=== PATIENT | male | born 1950 | race Caucasian/White ===

== ENCOUNTER 2020-09-05 08:30 | Emergency (ER) | payer MEDICARE, BC, SELFPAY ==
--- NOTE | ~2020-09-05 | XR_ITS ---
XR chest 2V DATE: 09/05/2020 08:51 INDICATION: Shortness of breath, cough, low oxygen saturation. History of asthma. TECHNIQUE: PA and lateral views. COMPARISON: None FINDINGS: There is mild bibasilar atelectasis or scarring. No pulmonary consolidation. No pleural eff usion or pulmonary vascular congestion or pneumothorax. Normal heart size. No hilar or mediastinal en largement. Mild dextroscoliosis and degenerative spurring of the thoracolumbar spine. Osteopenia IMPRESSION: Mild bibasilar atelectasis or scarring Reviewed, dictated and finalized at location A.
--- NOTE | ~2020-09-05 | CT_ITS ---
EXAMINATION: CT soft tissue neck w con DATE: 09/05/2020 10:54 INDICATION: Neck pain TECHNIQUE: Computed tomography (CT) of the neck was performed with 75 cc of Omnipaque 350 intravenous contrast. The dose-length product (DLP) was 530.90 mGy-cm. Automated exposure control and iterative reconstruction technique were employed. COMPARISON: None FINDINGS: The thyroid gland is unremarkable. The submandibular and parotid glands are symmetric. Ther e is no lymphadenopathy. There are no masses identified. The vasculature is patent. The airway is unr emarkable. There is moderate cervical spondylosis. The orbits are unremarkable. The superior mediasti num is unremarkable. There is moderate opacification of the left maxillary sinus and ethmoidal air ce lls with minimal opacification of the remaining paranasal sinuses. IMPRESSION: 1. No CT correlate for the patient's symptoms. 2. Sinus disease. Reviewed, dictated and finalized at location B.
[2020-09-05 08:34] VITALS: BP 134/87; PULSE 98; RESP 26; O2SAT 93
--- NOTE | 2020-09-05 08:37 | ECG_ITS ---
Measurements Intervals Dwarf Rate: 89 P: 37 CO: 170 QRS: -38 QRSD: 125 T: 75 QT: 364 QTc: 445 Interpretive Statements SINUS RHYTHM LEFT AXIS DEVIATION INTRAVENTRICULAR CONDUCTION DELAY DELAYED PRECORDIAL R/S TRANSITION LEFT VENTRICULAR HYPERTROPHY AND ST-T CHANGE BASELINE ARTIFACT- II, III, AVR, AVF, V1, V3-V6 BORDERLINE ECG Electronically Signed On 09-05-2020 10:12:48 CDT by Hakeem Qureshi D.O.
[2020-09-05 08:57] LABS: Basophils Absolute Auto 0.1 K/mm3 (0.0-0.1); Basophils Percent Auto 0.5 % (0.2-1.2); Eosinophils Absolute Auto 0.1 K/mm3 (0-0.3); Eosinophils Percent Auto 0.6 % (0-4.4); Hematocrit 45.8 % (42.0-52.0); Immature Granulocyte Absolute 0.04 K/mm3 (0.00-0.031); Immature Granulocyte Percent A 0.2 % (0-0.5); Lymphocytes Absolute Auto 6.03 K/mm3 (0.9-3.2); Lymphocytes Percent Auto 37.5 % (18.3-44.2); Mean Corpuscular HGB Conc 32.8 g/dl (32-36); Mean Corpuscular Hemoglobin 31.6 pg (26-34); Mean Corpuscular Volume 96.6 fl (80-100); Mean Platelet Volume 9.3 fl (7.4-10.4); Monocytes Absolute Auto 1.5 K/mm3 (0.1-0.6); Monocytes Percent Auto 9.5 % (2.6-8.5); Neutrophils Absolute Auto 8.3 K/mm3 (1.3-6.7); Neutrophils Percent Auto 51.7 % (45.5-73.1); Platelet Count Result 257 k/mm3 (150-375); Red Blood Count 4.74 M/mm3 (4.6-6.20); Red Cell Distribution Width 14.2 % (11.5-14.5); White Blood Count 16.1 K/mm3 (4.5-10.0)
[2020-09-05 09:08] LABS: Anion Gap 9 mmol/L (8-16); Blood Urea Nitrogen 7 mg/dL (9-20); Calcium 8.6 mg/dL (8.4-10.2); Carbon Dioxide 27 mmol/L (22-30); Chloride 105 mmol/L (98-107); Estimated CRCL calculation 72 ml/min; Estimated Glomerular Filt Rate > 60; Glucose 125 mg/dL (65-110); Potassium 3.2 mmol/L (3.4-5.0); Sodium 141 mmol/L (137-145)
--- NOTE | 2020-09-05 09:19 | ED.SOB ---
HPI - SOB/Dyspnea General Chief Complaint: Asthma Stated Complaint: Asthma, SOB Time Seen by Provider: 09/05/20 09:10 History of Present Illness HPI Narrative: 70 yo male w/ h/o asthma and recurrent sinusitis presents to the ED for SOB. He reports that he has had sinus pressure and drainge recently. This has lead to the development of sore throat and feeling like his throat is swelling. He has felt SOB since last night. He has tried inhalers and gave himself a shot from his epi pen today without improvement. Related Data Allergies Allergy/AdvReac Type Severity Reaction Status Date / Time amoxicillin [From Augmentin] Allergy Mild Verified 09/05/20 09:23 clavulanic acid Allergy Mild Verified 09/05/20 09:23 [From Augmentin] Review of Systems Review of Systems: All systems reviewed & are unremarkable except as noted in HPI and below Constitutional: Constitutional: Denies fever(s) Eyes: Eyes: Reports no additional eye complaints ENT: Denies dizziness, Reports nasal congestion and Reports sore throat Cardiovascular: Cardiovascular: Denies chest pain Respiratory: Respiratory: Reports dyspnea Gastrointestinal: Gastrointestinal: Reports no additional gastrointestinal complaints Neurologic: Denies dizziness and Denies weakness PMFSH Past Medical History Medical History Asthma Exam Const: General: no acute distress and alert Nutritional Appearance: well nourished Orientation/consciousness: patient oriented x3 HENMT: Ears: external ears normal and TM's normal bilaterally General nose exam: Nasal discharge present mucoid Face and sinus: sinuses nontender Throat: uvula midline and posterior oropharynx abnormal erythema Neck: Neck: normal visual inspection and no lymphadenopathy Resp: Effort & Inspection: tachypneic Auscultation: wheezes scattered wheezes Skin: General skin exam: normal color Neuro: General: patient oriented x3 and moves all extremities Speech: normal speech Course Vital Signs Vital signs: Vital Signs Pulse Rate 98 09/05/20 08:34 Respiratory Rate 26 H 09/05/20 08:34 Blood Pressure 134/87 09/05/20 08:34 Pulse Oximetry 93 09/05/20 08:34 Pulse Rate 82 09/05/20 13:26 Respiratory Rate 18 09/05/20 13:26 Blood Pressure 122/78 09/05/20 13:26 Pulse Oximetry 97 09/05/20 13:26 MDM - SOB/Dyspnea Differential Diagnosis Differential diagnosis: Likely asthma with exacerbation and other Medical Records Attestation: I reviewed the patient's medical records. Lab Data Attestation: I reviewed the patient's lab results. Result diagrams: 09/05/20 08:40 09/05/20 08:40 Labs: Lab Results 09/05/20 09/05/20 Range/Units 08:40 08:40 WBC 16.1 H (4.5-10.0) K/mm3 RBC 4.74 (4.6-6.20) M/mm3 Hgb 15.0 (14.0-18.0) g/dL Hct 45.8 (42.0-52.0) % MCV 96.6 (80-100) fl MCH 31.6 (26-34) pg MCHC 32.8 (32-36) g/dl RDW 14.2 (11.5-14.5) % Plt Count 257 (150-375) k/mm3 MPV 9.3 (7.4-10.4) fl Immature Gran % (Auto) 0.2 (0-0.5) % Neut % (Auto) 51.7 (45.5-73.1) % Lymph % (Auto) 37.5 (18.3-44.2) % [place] % (Auto) 9.5 H (2.6-8.5) % Eos % (Auto) 0.6 (0-4.4) % Baso % (Auto) 0.5 (0.2-1.2) % Lymph # (Auto) 6.03 H (0.9-3.2) K/mm3 [place] # (Auto) 1.5 H (0.1-0.6) K/mm3 Eos # (Auto) 0.1 (0-0.3) K/mm3 Baso # (Auto) 0.1 (0.0-0.1) K/mm3 Abs Immat Gran (auto) 0.04 H (0.00-0.031) K/mm3 Absolute Neuts (auto) 8.3 H (1.3-6.7) K/mm3 Absolute Nucleated RBC 0.0 (0.0-0.012) K/mm3 Nucleated RBC % 0.0 (0.0-0.2) % Sodium 141 (137-145) mmol/L Potassium 3.2 L (3.4-5.0) mmol/L Chloride 105 (98-107) mmol/L Carbon Dioxide 27 (22-30) mmol/L Anion Gap 9 (8-16) mmol/L BUN 7 L (9-20) mg/dL Creatinine 0.90 (0.7-1.3) mg/dL Estim Creat Clear Calc 72 ml/min Estimated GFR > 60 (59 - ) Glucose 125 H (65-110) mg/
[2020-09-05] MEDS: DEXAMETHASONE SOD PHOS INJ 4 MG/ML VIAL 10 MG IV PUSH (09:22)
[2020-09-05 09:27] VITALS: PULSE 87; RESP 21
[2020-09-05] MEDS: racEPINEPHrine 2.25% NEBU SOLN 0.5 ML VIAL.NEB INHALATION (09:27)
[2020-09-05] MEDS: BENZONATATE 100 MG CAPSULE 200 MG PO (09:42)
[2020-09-05 10:43] VITALS: BP 121/75; PULSE 96; RESP 18; O2SAT 96
--- NOTE | 2020-09-05 11:04 | PC.NURSE ---
assumed care of patient
[2020-09-05 11:14] VITALS: BP 120/76; PULSE 86; RESP 18; O2SAT 92
[2020-09-05 13:26] VITALS: BP 122/78; PULSE 82; RESP 18; O2SAT 97
== END 2020-09-05 13:28 | disposition home or self-care (01) ==
PROVIDERS: Emergency Provider Emergency Medicine; PCP Nurse Practitioner Family
DX: J01.90 Acute sinusitis, unspecified (principal); J02.9 Acute pharyngitis, unspecified; J45.909 Unspecified asthma, uncomplicated
CPT/HCPCS: 36415; 70491; 71046; 80048; 85025; 87081; 87880; 93005; 94640; 96374; 99284; A9270; J1100; Q9967

== ENCOUNTER 2020-09-08 08:53 | Outpatient (CLI) | payer MEDICARE, BC, SELFPAY | END 2020-09-08 08:54 | disposition home or self-care (01) | LOC: ANHAUDIO 08:58 | PROVIDERS: PCP Nurse Practitioner Family; Visit Provider Nurse Practitioner Family | DX: H90.3 Sensorineural hearing loss, bilateral (principal) | CPT/HCPCS: 92557; 92567 ==

== ENCOUNTER 2020-09-22 08:44 | Outpatient (RCR) | payer BC, SELFPAY | END 2020-09-22 23:59 | disposition home or self-care (01) | LOC: ANHAUDIO 08:44 | PROVIDERS: PCP Nurse Practitioner Family; Visit Provider Nurse Practitioner Family | DX: Z46.1 Encounter for fitting and adjustment of hearing aid (principal) | CPT/HCPCS: V5261 ==

== ENCOUNTER 2024-03-10 15:15 | Outpatient (CLI) | payer MEDICARE, BC, SELFPAY ==
--- NOTE | ~2024-03-10 | XR_ITS ---
EXAMINATION: XR chest 2V 03/10/2024 15:46 INDICATION: Wheezing PROCEDURE: 2 view chest COMPARISON: 09/05/2020 FINDINGS: The lungs are clear. The cardiomediastinal silhouette is within normal limits. There are no pleural effusions. There is no pneumothorax suspected. IMPRESSION: 1: NO ACUTE CARDIOPULMONARY DISEASE. Reviewed, dictated and finalized at location A. [employer]
--- NOTE | ~2024-03-10 | XR_ITS ---
HISTORY: low back pain COMPARISON: None. TECHNIQUE: 2 view lumbar spine. FINDINGS: There are 5 non-rib bearing lumbar vertebral bodies. Significant degenerative disease is identified lumbar spine with osteophyte formation (and bridging) ankylosis, endplate changes and vacuum phenomena. Facet arthropathy is also noted. Grade 1 anterolisthesis of L3 onto L4 and L4 onto L5. Trace compression of the superior endplate of L2, age indeterminate. IMPRESSION: Degenerative disease with trace compression of the superior endplate of L2, age indeterminate. The patient is clinically able, MRI would provide additional information Reviewed, dictated and finalized at location A. EACH REP
--- OUTSIDE RECORDS SUMMARY | 2024-03-12 19:46 | XMS_ITS | Continuity of Care Document ---
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 Plan of Treatment Reminders Order Date Submit Date Provider Last Modified By Organization Details Last Modified Time Details Appointments None recorded . Lab None recorded . Referral pain manageme nt referral - Please call patient to schedule an appointm ent. Thank you. 2024 025 [facility], [address], [place], [address], 17:15:23 Procedures None recorded . Surgeries None recorded . Imaging XR, chest, 2 view 2024 025 [facility], [address], [place], [address], 5 17:07:58 XR, lumbosac ral spine, 2 or 3 view 2024 025 [facility], [address], [place], [address], 5 09:21:20 Medication Orders levoflox acin 750 mg tablet 2024 025 [facility] [address] In [facility], [address], [place], [address], 5 15:50:17 albutero l sulfate HFA 90 mcg/actu ation aerosol inhaler 2024 025 [facility] [address] In [facility], [address], [place], [address], 5 15:50:18 Patient TargetsNo targets recorded. Patient InstructionsNo instructions recorded. Reason for Referral Pain Management Referral for Low back pain Please call patient to schedule an appointment. Thank you. Referring Physician: Miroslava Mcintosh, Family Medicine, Encounter Date: 03/10/2024 Results Created Date Observation Date Name Description Value Unit Range Abnormal Flag Note LastModifiedBy Organization Detail LastModifiedTime 03/10/19 25 03/10/2024 XR, chest , 2 view No observ ation record ed. [address], [place], [address], 03/11/2024 14:40:48 03/11/19 25 03/10/2024 XR, lumbo sacra l spine , 2 or 3 view No observ ation record ed. [address], [place], [address], 03/11/2024 14:40:49 Result Notes None recorded. Problems Name Problem SNOMED Code Status Onset Date Resolution Date Notes Provider Name and Address Organization Details Recorded Time Decreased hearing 261300185 Active 2017 Not Available [facility] 4 09:23:48 Nocturia 649203108 Active 2017 Not Available [facility] 4 09:23:48 Herpes labialis 8830379 Active 2021 Not Available [facility] 4 09:23:48 Acquired trigger finger 6628990 Active Not Available [facility] 4 09:23:48 Acute sinusitis 22332250 Completed Jose Palacio NP [address] [facility] [address] [facility] [address], [place], [address] , [facility] [employer] 3 08:12:28 On examinati on - herpes labialis- cold sore Active 2018 Not Available [facility] 4 09:23:48 Insomnia 149107113 Active Not Available [facility] 4 09:23:48 Asthma 688440432 Active Not Available [facility] 4 09:23:48 Localized , primary osteoarth ritis of the hand 301019812 Active Not Available [facility] 4 09:23:48 Gastroeso phageal reflux disease 173917244 Active Not Available [facility] 4 09:23:48 Fluid level behind tympanic membrane Completed Not Available [facility] 3 07:31:06 Family history of Cardiovas cular disease 102074542 Active 2017 Not Available [facility] 4 09:23:48 Pain of left hand 66738667966 9103 Active 2021 Not Available [facility] 4 09:23:48 Sinusitis 95561899 Completed Not Available [facility] 3 07:31:06 Seasonal allergy 280421421 Active 2017 Not Available [facility] 4 09:23:48 Upper respirato ry infection 78895720 Completed Not Available [facility] 3 07:31:07 Hyperlipi demia 19974425 Active 2017 doesn' t want to be on statin - side effect s. Not Available [facility] 4 09:23:49 Allergic rhinitis 72878688 Active 2020 Not Available [facility] 4 09:23:49 Rhinitis 98886623 Active Not Available [facility] 4 09:23:49 Posterior rhinorrhe a 68929489 Active Not Available [facility] 4 09:23:49 Acute sinusitis 33687068 Active 2022 Not Available [facility] 4 09:23:48 Difficult y passing urine 750829826 Active 2022 Not Available [facility] 4 09:23:48 Cramp in lower limb 124837499 Active 2022 Not Available [facility] 4 09:23:49 Acute bacterial sinusitis 35279869 Active [address], [place], [address] , [employer] [facility] [employer] [facility] 4 12:42:45 Allergic asthma 237519383 Active 2023 JESSA Vaughn [address], [address], [place], [address] , [place] [facility] 4 10:32:53 Spasm 38202714 Active 2023 JESSA Vaughn [address], [address], [place], [address] , [employer] [facility] [employer] [facility] [employer] 4 10:34:54 Acute otitis media 0413623 Active 2023 JESSA Vaughn [address], [address], [place], [address] , [employer] [facility] [employer] [facility] [employer] 4 10:45:25 Skin lesion 97008552 Active 2023 JESSA Vaughn [address], [address], [place], [address] , [facility] [facility] [employer] 4 16:18:54 Low back pain 438856256 Active 2024 JESSA Vaughn [address], [address], [place], [address] , [employer] [facility] [employer] [facility] 5 15:40:12 Expirator y wheezing 7370586 Active 2024 JESSA Vaughn [address], [address], [place], [address] , [employer] [facility] [employer] 5 15:42:53 Degenerat ion of lumbar intervert ebral disc 93662968 Active 2024 JESSA Vaughn [address], [address], [place], [address] , [employer] [facility] 5 09:24:23 Problem Notes None recorded. Procedures Surgical History Date Name Laterality Status Provider Name and Address Organization Details Recorded Time 10/15/19 24 Medicare Wellness CPT Code, Initial completed Miroslava Pulidojulio cesar, JESSA [address] [facility] [address], [place], [address], [facility] [employer] 10/15/2023 10:53:44 02/18/19 13 Cataract surg w/iol 1 stage completed Jose Haider RN [facility] [employer] 10/15/2023 10:15:12 Sinus Surgery completed Not Available [facility] 04/18/2022 07:27:20 Tonsillectomy completed Not Available [facility] 04/18/2022 07:27:20 Imaging Results None recorded. Procedure Notes None recorded. Medical Equipment None Reported. Allergies Allergen ID Allergen Name Allergen Category Reaction Reaction Severity Criticality Documentation Date Start Date Code Code System Note Provider Name and Address Organization Details Recorded Time 23076 Product containin g 3-hydroxy -3-methyl glutaryl- coenzyme A reductase inhibitor (product) medicatio n Not available Not available Not available 04/18/2022 31801 009 SNOMED muscl e aches , pain in throa t. Not Available [facility] 3 07:36:00 15515 cat dander environme nt anaphylax is moderate Not available 04/18/2022 52245 UNK breat ben cease s. Passe d out. Not Available [facility] 3 07:36:00 60486 Augmentin medicatio n nausea Not available Not available 04/18/2022 20888 2 RxNorm Not Available [facility] 3 07:36:00 Medications Name Sig Start Date Stop Date Status Note LastModified by Organization Details LastModified Time cyclobenzap rine 10 mg tablet Take 1 tablet 3 times a day by oral route as needed. 11/19 completed Not Available Not Available Not Available prednisone 10 mg tablet TAKE 2 TABLETS BY MOUTH EVERY DAY FOR 5 DAYS 08/19 completed Not Available Not Available Not Available doxycycline hyclate 100 mg capsule TAKE 1 CAPSULE BY MOUTH TWICE A DAY DIRECTED FOR 7 DAYS 03/10 completed Not Available Not Available Not Available ipratropium 0.5 mg-albutero l 3 mg (2.5 mg base)/3 mL nebulizatio n soln Inhale 3 mL 4 times a day by nebulizat ion route. 10/01 completed Not Available Not Available Not Available clindamycin HCl 300 mg capsule TAKE 1 CAPSULE BY MOUTH THREE TIMES A DAY FOR 10 DAYS. 11/19 completed Not Available Not Available Not Available azithromyci n 250 mg tablet TAKE 2 TABLETS BY MOUTH TODAY, THEN TAKE 1 TABLET DAILY FOR 4 DAYS DIRECTED 08/19 completed Not Available Not Available Not Available ibuprofen 800 mg tablet 1 tab po q 6 hours prn pain 07/23 completed Not Available Not Available Not Available ofloxacin 0.3 % eye drops 02/17 completed Not Available Not Available Not Available benzonatate 200 mg capsule Take 1 capsule 3 times a day by oral route as needed for 7 days. active Not Available Not Available No t Available valacyclovi r 1 gram tablet TAKE 1 TABLET BY MOUTH EVERY 12 HOURS NEEDED FOR 2 DAYS WHEN COLD SORE PRESENT active Not Available Not Available No t Available clarithromy abner 500 mg tablet Take 1 tablet every 12 hours by oral route for 30 days. active Not Available Not Available No t Available Celestone Soluspan 6 mg/mL suspension for injection active Not Available Not Available No t Available prednisone 20 mg tablet 07/23 completed Not Available Not Available Not Available Viagra 50 mg tablet Take 1 tablet every day by oral route as directed for 30 days. active Not Available Not Available No t Available prednisone 5 mg tablet TAKE 2 TABLETS BY MOUTH EVERY OTHER DAY AND TAKE 1 TABLET ON THE IN-BETWEE N DAYS 2023 active Not Available Not Available Not Avai lable promethazin e 6.25 mg-codeine 10 mg/5 mL syrup 10/01 completed Not Available Not Available Not Available metronidazo le 500 mg tablet Take 1 tablet every 8 hours by oral route as directed for 5 days. 07/23 completed Not Available Not Available Not Available doxepin 10 mg capsule Take 1 capsule every day by oral route at bedtime for 30 days. active Not Available Not Available No t Available ciprofloxac in 500 mg tablet Take 1 tablet every 12 hours by oral route as directed for 5 days. active Not Available Not Available No t Available sulfamethox azole 800 mg-trimetho prim 160 mg tablet TAKE 1 TABLET BY MOUTH EVERY 12 HOURS FOR 10 DAYS active Not Available Not Available No t Available prednisolon e acetate 1 % eye drops,suspe nsion 02/17 completed Not Available Not Available Not Available tamsulosin 0.4 mg capsule TAKE 1 CAPSULE BY MOUTH EVERY DAY 08/19 completed Not Available Not Available Not Available benzonatate 100 mg capsule TAKE 2 TABLETS BY MOUTH THREE TIMES DAILY NEEDED 08/29 completed Not Available Not Available Not Available simvastatin 20 mg tablet 1 tab po nightly. active Not Available Not Available No t Available neomycin-po lymyxin-dex ameth 3.5 mg/mL-10,00 0 unit/mL-0.1 % eye drops INSTILL ONE DROP INTO LEFT EYE FOUR TIMES DAILY FOR 3 DAYS active Not Available Not Available No t Available ranitidine 150 mg tablet Take 1 tablet every 12 hours by oral route as directed for 15 days. active Not Available Not Available No t Available lansoprazol e 30 mg capsule,del ayed release TAKE 1 CAPSULE BY MOUTH EVERY DAY 08/19 completed Not Available Not Available Not Available budesonide 0.5 mg/2 mL suspension for nebulizatio n active Not Available Not Available Not Available montelukast 10 mg tablet 1 tab po daily. 10/19 completed Not Available Not Available Not Available ceftriaxone 500 mg solution for injection active Not Available Not Available No t Available Cheratussin AC 10 mg-100 mg/5 mL oral liquid Take 10 mL every 8 hours by oral route as needed for 5 days. 07/23 completed Not Available Not Available Not Available epinephrine 0.3 mg/0.3 mL injection, auto-inject or Inject PRN allergic reaction 08/19 completed Not Available Not Available Not Available levofloxaci n 500 mg tablet Take 1 tablet every 24 hours by oral route as directed for 10 days. 10/01 completed Not Available Not Available Not Available levofloxaci n 750 mg tablet Take 1 tablet every day by oral route as directed for 7 days. 2024 active Not Available Not Available Not Avai lable zolpidem 10 mg tablet Take 1 tablet(s) every day by oral route at bedtime for 30 days.. active Not Available Not Available No t Available methylpredn isolone 4 mg tablets in a dose pack TAKE 6 TABLETS ON DAY 1 DIRECTED ON PACKAGE AND DECREASE BY 1 TAB EACH DAY FOR A TOTAL OF 6 DAYS 08/29 completed Not Available Not Available Not Available albuterol sulfate HFA 90 mcg/actuati on aerosol inhaler Inhale 2 puffs every 4 hours by inhalatio n route as needed. 2024 active Not Available Not Available Not Avai lable ondansetron 4 mg disintegrat ing tablet Take 1 tablet every 6-8 hours by oral route as needed for 5 days. active Not Available Not Available No t Available cefdinir 300 mg capsule Take 1 capsule every 12 hours by oral route for 10 days. active Not Available Not Available No t Available fluticasone propionate 50 mcg/actuati on nasal spray,suspe nsion Inhale 2 sprays every day by intranasa l route in the morning for 30 days. active Not Available Not Available No t Available doxycycline hyclate 100 mg tablet TAKE 1 TABLET BY MOUTH TWICE A DAY 12/13 completed Not Available Not Available Not Available diazepam 5 mg tablet 02/17 completed Not Available Not Available Not Available amoxicillin 875 mg-potassiu m clavulanate 125 mg tablet Take 1 tablet every 12 hours by oral route. 08/29 completed Not Available Not Available Not Available metaxalone 800 mg tablet Take 1 tablet 3 times a day by oral route as needed. active Not Available Not Available No t Available ezetimibe 10 mg tablet TAKE 1 TABLET BY MOUTH EVERY DAY 08/19 completed Not Available Not Available Not Available cyclobenzap rine 5 mg tablet TAKE 1 TABLET BY MOUTH THREE TIMES A DAY NEEDED active Not Available Not Available No t Available Restasis 0.05 % eye drops in a dropperette 05/19 completed Not Available Not Available Not Available Xolair 150 mg subcutaneou s solution 05/19 completed Not Available Not Available Not Available ketorolac 0.4 % eye drops 02/17 completed Not Available Not Available Not Available Levitra 10 mg tablet Take 1 tablet as needed by oral route as directed for 30 days. 05/19 completed Not Available Not Available Not Available Gammagard Liquid 10 % injection solution GETS 1X A MONTH 10/01 completed Not Available Not Available Not Available zolpidem ER 12.5 mg tablet,exte nded release,mul tiphase Take 1 tablet every day by oral route as directed for 30 days. 05/19 completed Not Available Not Available Not Available prednisone 08/29 completed Not Available Not Available Not Available azelastine 205.5 mcg (0.15 %) nasal spray 1 spray each nostril bid prn allergies . 10/19 completed Not Available Not Available Not Available Dexilant 60 mg capsule, delayed release TAKE 1 CAPSULE DAILY. MAKE AN APPOINTME NT FOR FURTHER REFILLS active Not Available Not Available No t Available QNASL 80 mcg/actuati on nasal aerosol spray active Not Available Not Available Not Available Flowflex COVID-19 Antigen Home Test kit REFER TO MANUFACTU RER INSTRUCTI ONS INCLUDED IN PACKAGING 06/14 completed Not Available Not Available Not Available Vitals Date Recorded Body height Body mass index (BMI) Body weight Heart rate Body temperature Respiratory rate Oxygen saturation Oxygen saturation in Arterial blood by Pulse oximetry Systolic blood pressure Diastolic blood pressure Provider Name and Address Organization Details Last Updated DateTime 5 177.8 cm 27.6 kg/m2 33589.4 4 g 63 /min 97.2 [degF] 24 /min 99 % 99 % 170 mm[Hg] 110 mm[Hg] Jose Haider RN [place] [facility] [employer] 5 15:30:18 Social History Question Answer Notes LastModified by Organization Details LastModified Time Tobacco Smoking Status Never Smoker Not Available [facility] 04/18/2022 07:27:03 Do You Have An Advance Directive? No [id number].[id number] [id number] Information not available 04/18/2022 What Is Your Level Of Alcohol Consumption? Moderate MIGRATION.0301 [id number] Information not available 04/18/2022 Are You Blind Or Do You Have Difficulty Seeing? No MIGRATION.0301 181407 Information not available 04/18/2022 Is Blood Transfusion Acceptable In An Emergency? Yes Information not available 10/15/2023 What Is Your Level Of Caffeine Consumption? Moderate MIGRATION.0301 [id number] Information not available 04/18/2022 How Much Tobacco Do You Chew? None MIGRATION.0301 [id number] Information not available 04/18/2022 What Is Your Code Status? Full Code Information not available 10/15/2023 In The 14 Days Before Symptom Onset, Have You Had Close Contact With A Laboratory-conf irmed COVID-19 While That Case Was Ill? No MIGRATION.0301 [id number] Information not available 04/18/2022 In The 14 Days Before Symptom Onset, Have You Had Close Contact With A Person Who Is Under Investigation For COVID-19 While That Person Was Ill? No MIGRATION.0301 [id number] Information not available 04/18/2022 Are You Currently Employed? No Information not available 10/15/2023 Are You Deaf Or Do You Have Serious Difficulty Hearing? Yes Hears 3 Different Pitches At A Time. MIGRATION.0301 [id number] Information not available 04/18/2022 What Type Of Diet Are You Following? REGULAR MIGRATION.0301 414546 Information not available 04/18/2022 Which Illicit Or Recreational Drugs Have You Used? Marijuana MIGRATION.0301 244079 Information not available 04/18/2022 Do You Or Have You Ever Used E-cigarettes Or Vape? Never Used Electronic Cigarettes MIGRATION.0301 328046 Information not available 04/18/2022 What Is Your Occupation? Retired MIGRATION.0301 667417 Information not available 04/18/2022 Have There Been Any Changes To Your Family Or Social Situation? No Information not available 06/14/2022 Do You Use Insect Repellent Routinely? Yes MIGRATION.0301 [id number] Information not available 04/18/2022 Where Do You Live? SingleLevelHouse Information not available 06/14/2022 Advance Directive- Providers Has Reviewed Directive And Consents To Follow Them (insert Provider Name With Any Objectives In Notes Field) No Information not available 10/15/2023 Presence Of Domestic Violence No Information not available 10/15/2023 Guns Present In The Home? No Information not available 10/15/2023 Are You Able To Care For Yourself? No Information not available 10/15/2023 Are You Blind Or Do Yo Have Difficulty Seeing? Yes Information not available 10/15/2023 Are You Deaf Or Do You Have Serious Difficulty Hearing? Yes Information not available 10/15/2023 General Stress Level? Low Information not available 10/15/2023 Live Alone Of With Others? Alone Information not available 10/15/2023 Do You Have A Medical Power Of Backend Tester? No MIGRATION.0301 [id number] Information not available 04/18/2022 What Was The Date Of Your Most Recent Tobacco Screening? 11/14/2021 MIGRATION.0301 [id number] Information not available 04/18/2022 What Is Your Relationship Status? MIGRATION.0301 730463 Information not available 04/18/2022 Do You Use Your Seat Belt Or Car Seat Routinely? Yes MIGRATION.0301 178591 Information not available 04/18/2022 Do You Have Smoke And Carbon Monoxide Detectors In Your Home? No Information not available 06/14/2022 Do You Or Have You Ever Used Smokeless Tobacco? Never Used Smokeless Tobacco MIGRATION.0301 181082 Information not available 04/18/2022 Are There Any Smokers In Your House? No Information not available 06/14/2022 Do You Participate In Social [employer]? Yes MIGRATION.030 [id number] Information not available 04/18/2022 Do You Feel Stressed (tense, Restless, Nervous, Or Anxious, Or Unable To Sleep At Night)? [id number] Information not available 10/15/2023 Do You Use Any Illicit Or Recreational Drugs? Yes Information not available 06/14/2022 Do You Use Sunscreen Routinely? Yes MIGRATION.0301 954631 Information not available 04/18/2022 Have You Recently Traveled Abroad? No MIGRATION.0301 148611 Information not available 04/18/2022 Sex: Male Functional Status Question Answer Note LastModified by Organizat ion Details LastModified Time Do you have difficulty walking or climbing stairs? No MIGRATION.91981 19673 Information not available 04/18/2022 Do you have transportation difficulties? No Information not available 06/14/2022 Are you able to walk? YESWOREST Occasionally unsteady MIGRATION.77860 05590 Information not available 04/18/2022 Do you have difficulty doing errands alone? No MIGRATION.39692 91646 Information not available 04/18/2022 Are you able to care for yourself? Yes MIGRATION.46417 68590 Information not available 04/18/2022 Do you have difficulty dressing or bathing? No MIGRATION.07285 94131 Information not available 04/18/2022 What is your exercise level? Heavy MIGRATION.61639 31361 Information not available 04/18/2022 Mental Status Question Answer Note LastModified by Organizat ion Details LastModified Time Do you have difficulty concentrating, remembering or making decisions? No MIGRATION.[id number] 6 Information not available 04/18/2022 Family History Relationship Description Onset Age of this Age Resolved Age Notes LastModified by Organization Details LastModified Time Father No current problems or disability MIGRATION.543 [id number] Not available 04/18/2022 07:27:22 Mother No current problems or disability MIGRATION.365 [id number] Not available 04/18/2022 07:27:22 Medical History Condition Response BLINDNESS N RHEUMATIC FEVER N KIDNEY STONES N BLADDER PROBLEMS N MRSA N OTHER # 1 N POLIO N LUNG DISEASE/DISORDER Y HISTORY OF DRUG ABUSE N RADIATION / CHEMOTHERAPY N COPD N Other # 2 N BLOOD DISEASES N SURGERY N EAR OR HEARING PROBLEMS N MUMPS N SHINGLES N FEMALE PROBLEMS / INFECTIONS N BOWEL PROBLEMS N DEPRESSION (INCLUDING POST ) N STROKE/TIA N THYROID DISEASE N ULCERS N BENIGN PROSTATIC HYPERPLASIA N MEASLES N CERVICALGIA N TB SKIN TEST N HYPOTENSION N MYOCARDIAL INFARCTION N PARAPELGIA N OBESITY N GERD/NAUSEA N ANEURYSM N URINARY/BLADDER/KIDNEY PROBLEMS N CORONARY ARTERY DISEASE (CAD) N MENIERE'S DISEASE N ADDICTION CONCERNS N ENDOMETRIOSIS N USE OF BLOOD THINNERS N SKIN PROBLEMS N EMPHYSEMA N GASTROINTESTINAL DISORDER N MUSCLE,JOINT OR BONE PROBLEMS N GASTROINTESTINAL BLEEDING N BLOOD CLOTS N ASTHMA Y CATARACTS Y ERECTILE DYSFUNCTION N GI PROBLEMS N CHF N Low Testosterone N NEUROPATHY N INFERTILITY N AIDS/HIV N FRACTURES N CHEMOTHERAPY / RADIATION N VISION/EYE PROBLEMS N LIVER DISEASE N MALE HYPOGONADISM N HYPERTENSION N TOURETTE'S N ANXIETY DISORDER Y BLOOD TRANSFUSION N ANEMIA/BLOOD DISORDER N CHRONIC EAR INFECTIONS N BRONCHITIS N TUBERCULOSIS N GLAUCOMA N FOOT PROBLEM N DIVERTICULITIS N SLEEP APNEA N CHICKENPOX N ALLERGIES/HAYFEVER Y INFECTIOUS DISEASE N PROSTATE N HEART ARRHYTHMIA N INSOMNIA N HIGH CHOLESTEROL / HYPERLIPIDEMIA N EYE PROBLEMS N HYPERTHYROIDISM N EATING DISORDER N EDEMA N CHRONIC PAIN SYNDROME N CONSTIPATION N CAROTID BLOCKAGE N BACK / NECK PROBLEMS Y HAVE YOU BEEN HOSPITALIZED OR SEEN IN [facility] IN THE PAST YEAR ? N ATHEROSCLEROSIS N BREAST PROBLEMS N DIALYSIS N ECZEMA N FIBROMYALGIA N OSTEOPOROSIS N ARTHRITIS N NO SIGNIFICANT PAST MEDICAL HISTORY N APPENDICITIS N DIABETES, TYPE N BAD TEETH N HEARTBURN / REFLUX N ADD/ADHD N AUTISM SPECTRUM DISORDER (ASD) N HEPATITIS / LIVER DISEASE N PULMONARY DISEASE N GOUT N SLEEP DISORDER N ALZHEIMER'S DISEASE N PAIN N DEMENTIA N HERPES N SEIZURES/EPILEPSY N HEADACHES/MIGRAINES N VASCULAR DISEASE N PACEMAKER N DIZZINESS N HEART DISEASE/HEART PROBLEMS N KIDNEY DISEASE N SCARLET FEVER N MULTIPLE SCLEROSIS N DEVELOPMENTAL OR BEHAVIORAL DISORDERS N MENTAL DISORDER/ILLNESS N CANCER: SPECIFY N CARDIAC ARRHYTHMIA N PNEUMONIA N ATRIAL FIBRILLATION N Gall Stones N PULMONARY EMBOLISM N AUTOIMMUNE DISEASE N Immunizations Vaccine Type Date Status Note Provider Nam e and Address Organization Details Recorded Time SARS-COV-2 (COVID-19) vaccine, UNSPECIFIED 3 completed Jose Haider RN [facility], [facility] [employer] 08/20/2023 10:11:55 Respiratory syncytial virus (RSV), unspecified 4 completed Jose Palacio NP [address] [place] [address], [id number], [facility] [place] [employer] [facility] [employer] 02/27/2023 08:05:18 Influenza, split virus, quadrivalent, preservative 1 completed Not Available [facility] 04/18/2022 07:35:53 SARS-COV-2 (COVID-19) vaccine, UNSPECIFIED 1 completed Not Available [facility] 04/18/2022 07:35:53 SARS-COV-2 (COVID-19) vaccine, UNSPECIFIED 1 completed Not Available [facility] 04/18/2022 07:35:53 Tdap 8 completed Not Available [facility] 04/18/2022 07:35:53 Influenza, split virus, trivalent, preservative 3 completed Not Available [facility] 04/18/2022 07:35:54 pneumococcal polysaccharide PPV23 1 completed Not Available [facility] 04/18/2022 07:35:54 Td (adult), 2 Lf tetanus toxoid, preservative free, adsorbed 8 completed Not Available [facility] 04/18/2022 07:35:54 Pneumococcal conjugate PCV 13 8 completed Not Available [facility] 04/18/2022 07:35:54 Influenza, split virus, quadrivalent, preservative 6 completed Not Available [facility] 04/18/2022 07:35:54 Influenza, split virus, trivalent, PF 4 completed Not Available [facility] 04/18/2022 07:35:54 Past Encounters Encounter ID Performer Location Encounter Start Date Encounter Closed Date Diagnosis/Indication Diagnosis SNOMED-CT Code Diagnosis ICD10 Code Diagnosis Note [id number] JESSA Vaughn [facility] [address] [address] 03/10/2024 15:16:57 03/10/2024 15:52:59 Low back pain 431579858 M54.50 Possible kidney stone?Pt request pain management referral Expiratory wheezing [id number] 007 R06.2 Has been wheezing for a few months.Bell s take prednisone every other day.Does not see pulm for asthmaRefu ses ICS Asthma [id number] J45.90 9 Will increase daily prednisone dose while symptoms are severe Acute bact erial sinusitis [id number] J01.90 Large spectrum abx resistant, frequent abx use. Has had multiple sinus surgeries with no relief Health Concerns Section Related Observation LastModified by Organization Detai ls LastModified Time None Recorded Concern Status LastModified by Organization Details LastModified Time None Recorded Payers Encounter Date Sequence Insurance Name Policy Number Policy Delatorre Covered Member ID Delatorre Member ID Guarantor Name 03/10/2024 1 [place] Swapnil Manas Nish [id number] Swapnil Mock 03/10/2024 2 [place] ([place]) [id number] Swapnil Mock [id number] Swapnil Mock Notes Date Note Type Note Provider Name and Address Organization Details Recorded Time 03/10/2024 text/html Swapnil Mock is a 74 year old male patient here today for a sick visit Pain in BUD ears, sinuses, sore throat, head congestion. Kept him awake last night. Wheezing, worse at night for a few months. Sometimes will wake himself up at night from the sounds of his wheeze.He does take prednisone every other day per ENT Has had issues with left sided flank pain that radiates to his abdomen. Would like to see pain management JESSA Vaughn [address] [facility] [address], [place], [address], [facility] 03/10/2024 15:58:25
--- OUTSIDE RECORDS SUMMARY | 2024-03-12 19:46 | XMS_ITS | CONTINUITY OF CARE DOCUMENT ---
Author Name sam vargas Address Unknown Organization [facility] Address [address] [place] [address] Phone [phone] Care Team Providers Care Chief Deputy Coroner Name Role Phone Milton Ponce MD Unavailable Mickie SALGADOP-BC, Karlene Malagon Unavailable Mickie [employer]AL [employer]ODUCTION WORKER-BC, Karlene Malagon Unavailable [phone] PROBLEMS Condition Status Date Provider Notes Personal history of COVID-19 active Milton palomares MD Chest pain active Miltno Ponce MD Palpitations active Milton Ponce MD Shortness of breath on exertion active Zack Ponce MD Cardiology examination completed 5 - Milton Ponce MD ENCOUNTERS Date Type Provider Location Encounter Diag nosis - In-person encounter Office Visit Milton Ponce MD [facility] Cardiology examination - In-person encounter Office Visit Milton Ponce MD [facility] - In-person encounter Office Visit Milton Ponce MD [facility] Personal history of COVID-19 - In-person encounter Office Visit Milton Ponce MD [place] [facility] Shortness of breath on exertionPalpitationsChest pain VITAL SIGNS Date Observation Value Provider Body Mass Index (Ratio) 27.69 kg/m2 Zack Ponce MD blood pressure, diastolic 85 mm[Hg] Rosa M [employer] blood pressure, systolic 124 mm[Hg] Denise kLog blood pressure, cuff size regular Ja blood pressure, diastolic 85 mm[Hg] Ja [facility] blood pressure, systolic 124 mm[Hg] [facility] pulse rate 100 /min Richie oxygen saturation, oximetry 98 % [facility] respiratory rate E&M 12 /min [facility] weight E&M 193 [lb_av] [facility] height E&M 70 [in_i] [facility] Body Mass Index (Ratio) 28.12 kg/m2 Zack Ponce MD blood pressure, diastolic 79 mm[Hg] An shanthi Meade blood pressure, systolic 115 mm[Hg] Any kandice Meade oxygen saturation, oximetry 99 % Maria Elena Meade pulse rate 65 /min Maria Elena Meade weight E&M 196 [lb_av] Maria Elena Meade blood pressure, cuff size large An shanthi Meade height E&M 70 [in_i] Maria Elena Meade Body Mass Index (Ratio) 27.98 kg/m2 Zack Ponce MD blood pressure, cuff size large Ke rri Marce blood pressure, diastolic 72 mm[Hg] Ke rri Marce blood pressure, systolic 106 mm[Hg] Gregorio Zheng oxygen saturation, oximetry 95 % Shahida Zheng respiratory rate E&M 16 /min Shahida pedro pulse rate 70 /min Shahida Adorno [facility] weight E&M 195 [lb_av] Shahida Adorno [facility] height E&M 70 [in_i] Shahida Adorno [facility] weight E&M 194 [lb_av] aHrinder wilson Body Mass Index (Ratio) 27.83 kg/m2 Zack Ponce MD blood pressure, diastolic 77 mm[Hg] Rosa [facility], systolic 114 mm[Hg] [facility] blood pressure, diastolic 77 mm[Hg] [facility] blood pressure, systolic 114 mm[Hg] [facility] blood pressure, cuff size large Gerhard Fernandez blood pressure, diastolic 77 mm[Hg] Gerhard Fernandez blood pressure, systolic 114 mm[Hg] William Fernandez oxygen saturation, oximetry 96 % Maria Esther Fernandez respiratory rate E&M 14 /min Maria Esther Fernandez pulse rate 72 /min Maria Esther Fernandez weight E&M 194.0 [lb_av] Maria Esther Fernandez height E&M 70 [in_i] Maria Esther Fernandez ALLERGIES Allergy Name Onset Date Reaction Criticality Status AUGMENTIN High Criticality active HISTORY OF MEDICATION USE Medication Status Instructions Dates Provider Indications Com ments prednisone 5 mg tablet active Milton Ponce MD lansoprazole 30 mg capsule,delayed release(DR/EC) active Milton Ponce MD SOCIAL HISTORY Date Observation Value Provider social history E&M S moking History: P austin has never smoked. Milton Ponce MD smoking status Never smoker Milton Ponce MD drug use, illicit, d rug of choice marijuana Stephanie Ventimiglverito [facility] alcohol use, average drinks per day social Stephanienelli Singh [facility] drug use yes Stephanie sanz [facility] alcohol use yes Stephanie Frankg umu [facility] smoking status Never smoker Stephanie rivas [facility] social history E&M S moking History: Troy avila has never smoked. Milton Ponce MD social history reviewed E&M revi ewed - no changes required Milton Ponce MD smoking status Never smoker Shahida Rucker vitaliy drug use no Milton Ponce MD alcohol use no Milton Ponce MD social history E&M S moking History: Troy avila has never smoked. Milton Ponce MD social history reviewed E&M revi ewed - no changes required Milton Ponce MD smoking status Never smoker Maria Esther Fernandez INSURANCE PROVIDERS Payer name Policy type / Coverage type [place] red democrat ID [facility] [id number] [place] MEDIC[place] Medicare [id number] ADVANCE DIRECTIVES Name Date DISCUSSED - NO DECISION MADE TREATMENT PLAN Date Name Performer [id number],C,C ardiac monitor showed <0.1% ectopic beats Milton Ponce MD [id number],C,P ain is midsternal and worsens with stress H e had negative stress test in 09/2021 Milton Ponce MD [id number],S, Milton Ponce MD [id number],C,c oncern for long covid as two covi infections last year. Will discuss covid lydia cook at [place] with his PCP Stephanie Snigh [facility] [id number],C,No recurrence . Stephanie Singh [facility] [id number],C,W ith moderate to heavy activity. PFT did not show significant airway obstruction. As noted above stress and echo without acute finding. will continue to remain active. consider sleep study. F/u in 6 mos or sooner if needed. Stephanie Zaclatisha [facility] [id number],S,A typical and very rare occurences. Have lessened since visit 6 mos ago. Symptoms may be related to long covid vs anxiety. stress, echo and tele were without acute findings. He remains active walking 3 miles a day. He wishes to follow with PCP for labs and possible sleept study. Will f/u in 6 mos or sooner if needed. Stephanie Singh [facility] [id number],S, Miltno Ponce MD [id number],B,H e is overall feeling much better and all his testing as mentioned earlier came back normal. I will see him in 6 months to continue to see if he gets better. Milton Ponce MD [id number],B,I don't think he is going through Long-COVID. Milton Ponce MD [id number],C,will check a 48 holter. 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 Will discuss covid lydia cook at [place] with his PCP Stephanie Singh [facility] Cardiology:No recurrence. Stephanie Singh [facility] Cardiology:With mode rate to heavy activity. PFT did not show significant airway obstruction. As noted above stress and echo without acute finding. will continue to remain active. consider sleep study. F/u in 6 mos or sooner if needed. Stephanie Singh [facility] Cardiology:Atypical and very rare occurences. Have lessened since visit 6 mos ago. Symptoms may be related to long covid vs anxiety. stress, echo and tele were without acute findings. He remains active walking 3 miles a day. He wishes to follow with PCP for labs and possible sleept study. Will f/u in 6 mos or sooner if needed. Stephanie Francisco [facility] Cardiology Milton Ponce MD Cardiology:He is ove rall feeling much better and all his testing as mentioned earlier came back normal. I will see him in 6 months to continue to see if he gets better. Milton Ponce MD Cardiology:I don't t hink he is going through Long-COVID. Milton Ponce MD Cardiology:will check a [address]. Milton Ponce MD Cardiology:This seem s to be post covid and he will need a routine stress test along with an echo to eval for pulmonary htn w ill also check PFT's Milton Ponce MD Date Name Complete Echo Holter Monitor 48 hr Stress Routine DLCO - 82384 FRC - 07425 FVC - 40907 Complete Echo HISTORY OF PROCEDURES Procedure Date Procedure Name Provider Procedure Notes S tatus EKG Milton Ponce MD completed Spirometry Mitlon Ponce MD completed FVC / MVV with bronchodilator - 80663 Milton Ponce MD completed FRC - 03378 Milton Ponce MD complete d SpO2 w/o 6min walk/titration Milton Ponce MD completed SVC - 72966 Milton Ponce MD complete d DLCO - 35981 Milton Ponce MD complet ed EKG Milton Ponce MD completed
--- OUTSIDE RECORDS SUMMARY | 2024-03-12 19:46 | XMS_ITS | Data Portability ---
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 Plan of Treatment Reminders Order Date Submit Date Provider Last Modified By Organization Details Last Modified Time Details Appointments None recorded . Lab magnesiu m, serum or plasma 2022 023 [facility], [address] , [place], [address], 3 21:13:48 PSA, serum or plasma 2022 023 [email or web address], [address] , [place], [address], 3 07:58:44 CBC w/ auto diff 2022 023 [facility], [address] , [place], [address], 3 19:13:39 urinalys is complete , reflex culture 2022 023 [email or web address], [address] , [place], [address], 3 08:56:46 BMP, serum or plasma 2022 023 [facility], [address], [place], [address], 3 21:13:38 lipid panel, serum 2022 023 [facility], [address], [place], [address], 3 21:13:33 hepatic function panel, serum 2022 023 [facility], [address], [place], [address], 3 21:13:36 CBC w/ auto diff 2023 024 [facility] (Lab), [address] [place], [address], 4 22:20:31 CMP, serum or plasma 2023 024 [facility] (Lab), [address] [place], [address], 4 10:48:26 magnesiu m, serum or plasma [address] (Lab), [address] [place], [address], 4 08:12:12 glycohem oglobin, total, blood [address] (Lab), [address] [place], [address], 4 08:12:12 PSA, total, serum or plasma [address] (Lab), [address] [place], [address], 4 08:12:12 lipid panel, serum 2023 024 [facility] (Lab), [address] [place], [address], 4 22:20:31 urinalys is complete , reflex culture 2023 024 [facility] (Lab), [address] [place], [address], 4 22:20:31 Referral urologis t referral 2022 023 [email or web address] Juan Farrell MD, [address], [address], [place], [address], 3 09:18:04 dermatol ogist referral - Please call patient to schedule . 2023 024 [email or web address], [address] [place], [address], 4 09:14:33 pain manageme nt referral - Please call patient to schedule an appointm ent. Thank you. 2024 025 [facility], [address], [place], [address], 5 17:15:23 Procedures None recorded . Surgeries None recorded . Imaging XR, chest, 2 view 2024 025 [facility], [address], [place], [address], 5 17:07:58 XR, lumbosac ral spine, 2 or 3 view 2024 025 [facility], [address], [place], [address], 5 09:21:20 Medication Orders cycloben zaprine 5 mg tablet 2022 023 [facility], [address] [place] [address], [place], [address], 4 10:13:34 clindamy abner HCl 300 mg capsule 2022 023 [facility] [address], [place], [address], 4 16:05:22 predniso ne 10 mg tablet 2022 023 [facility] [address], [place], [address], 4 10:13:39 tamsulos in 0.4 mg capsule 2022 023 [facility] [address], [place], [address], 4 10:14:55 cycloben zaprine 5 mg tablet 2023 024 [facility] [address], [address], 4 10:37:35 clindamy abner HCl 300 mg capsule 2023 024 [facility] [address], [place], [address], 4 16:05:22 predniso ne 5 mg tablet 2023 024 [facility] [address], [place], [address], 4 10:45:32 albutero l sulfate HFA 90 mcg/actu ation aerosol inhaler 2023 024 [facility] [address], [place], [address], 4 10:37:35 levoflox acin 750 mg tablet 2023 024 [email or web address] [address], [place], [address], 4 15:40:20 levoflox acin 750 mg tablet 2024 [address]25 [place] [address] In [place] [address] , [place], [address], 5 15:50:17 albutero l sulfate HFA 90 mcg/actu ation aerosol inhaler 2024 025 [facility], [facility] [address] , [place], [address], 5 15:50:18 Patient TargetsNo targets recorded. Patient Instructions Encounter Date Encounter Id Patient Instructions Last Modified By Organization Details Last Modified Time 10/12/2022 [id number] FU in 4 mo for allergies, prostate, labs, etc. [email or web address] Not available 10/12/2022 10:50:25 10/15/2023 [id number] dementia rating scale-2* RHONDA Not available 10/15/2023 12:42:52 care plan* RHONDA Not available 10/14 12:43:10 multi-dimensiona l health assessment questionnaire* RHONDA Not available 10/15/2023 12:43:01 advance directiv es: care instructions [email or web address] Not available 10/15/2023 10:42:14 [place] Advance Directives [email or web address] Not available 10/15/2023 10:42:14 [facility] care planning: [facility] available 10/15/2023 10:42:14 Personalized a lth Plan and Screening Recommendations Advance Directives - Do you have one? Advance Directives - Do we have your advance directive on file in your health record? Primary Prevention/Interven tion (prevents or decreases the chance of common diseases from occurring) Smoking Risk: Non Smoker Alcohol Misuse Screening: Negative Weight: Appropriate Overwei ght Physical activity: Appropriate physical activity minimum of 10-20 minutes of activity that causes mild breathlessness/day minimum of 20-30 minutes activity that causes mild breathlessness/day minimum of 30-40 minutes of activity that causes mild breathlessness/day Nutrition: Good Average Refer to attached handout Heart-Healthy Diet: After Your Visit Fall Risk (screened today): Low Refer to attached handout Preventing Falls: After your Visit Vaccines Pneumococcal: Ordered Recommended today Recommended today, but you have declined No further needed Influenza: Chronic Disease Risks Stroke: I have no recommendations Act carrie diagnosis, Continue current treatment plan Heart Attack: I have no recommendations Act carrie diagnosis, Continue current treatment plan Clogging of the Arteries: I have no recommendations Act carrie diagnosis, Continue current treatment plan Diabetes: Low Risk Intermediate Risk Secondary Prevention/Interven tion (detects treatable diseases before they may cause symptoms, disability, or ) Prostate Cancer Screening: Colon Cancer Screening: Colonoscopy In: Ordered Date Screening Last Performed: __2009__ Eye Disease Screening: Ordered Recommended today Dementia Risk: Low Depression Screening: Negative yazan Not available 10/15/2023 10:30:58 Reason for Referral Urologist Referral for Diffi culty passing urine Referring Physician: Karlene Palacio [facility], Encounter Date: 10/12/2022 Manager Of Training And Development Referral for S kin lesion Please call patient to schedule. Referring Physician: Miroslava Mcintosh [facility], Encounter Date: 11/20/2023 Pain Management Referral for Low back pain Please call patient to schedule an appointment. Thank you. Referring Physician: Miroslava Mcintosh [facility], Encounter Date: 03/10/2024 Results Created Date Observation Date Name Description Value Unit Range Abnormal Flag Note LastModifiedBy Organization Detail LastModifiedTime 10/13/1910/12/2022 CBC/C OMPLE TE BLD COUNT W/DIF F white blood cells 7.4 x10'3 /uL 4.2-10 .8 Not Available [facility] (Lab) [address] [place], [address], 10/12/2022 19:13:39 10/13/19 23 10/12/2022 CBC/C OMPLE TE BLD COUNT W/DIF F red blood cells 5.16 x10'6 /uL 4.10-5 .80 Not Available [facility] (Lab) [address] [place], [address], 10/12/2022 19:13:39 10/13/19 23 10/12/2022 CBC/C OMPLE TE BLD COUNT W/DIF F hemoglobin 16.2 g/dL 13.2-1 7.0 Not Available [facility] (Lab) [address] [place], [address], 10/12/2022 19:13:39 10/13/19 23 10/12/2022 CBC/C OMPLE TE BLD COUNT W/DIF F hematocrit 49.9 % 39.3-5 0.0 Not Available [facility] (Lab) [address] [place], [address], 10/12/2022 19:13:39 10/13/19 23 10/12/2022 CBC/C OMPLE TE BLD COUNT W/DIF F mean red cell volume 96.7 fL 80.0-9 7.0 Not Available [facility] (Lab) [address] [place], [address], 10/12/2022 19:13:39 10/13/19 23 10/12/2022 CBC/C OMPLE TE BLD COUNT W/DIF F mean red cell hemoglobin 31.4 pg 27.0-3 3.0 Not Available [facility] (Lab) [address] [place], [address], 10/12/2022 19:13:39 10/13/19 23 10/12/2022 CBC/C OMPLE TE BLD COUNT W/DIF F mean RBC HGB concentratio n 32.5 g/dL 31.0-3 6.0 Not Available [facility] (Lab) [address] [place], [address], 10/12/2022 19:13:39 10/13/19 23 10/12/2022 CBC/C OMPLE TE BLD COUNT W/DIF F red cell distribution width 13.9 % 11.8-1 5.5 Not Available [facility] (Lab) [address] [place], [address], 10/12/2022 19:13:39 10/13/19 23 10/12/2022 CBC/C OMPLE TE BLD COUNT W/DIF F platelets 220 x10'3 /uL 150-40 0 Not Available [facility] (Lab) [address] [place], [address], 10/12/2022 19:13:39 10/13/19 23 10/12/2022 CBC/C OMPLE TE BLD COUNT W/DIF F mean platelet volume 10.0 fL 9.0-12 .4 Not Available [facility] (Lab) [address] [place], [address], 10/12/2022 19:13:39 10/13/19 23 10/12/2022 CBC/C OMPLE TE BLD COUNT W/DIF F neutrophils 35.3 % 39.0-7 2.0 low Not Available [facility] (Lab) [address] [place], [address], 10/12/2022 19:13:39 10/13/19 23 10/12/2022 CBC/C OMPLE TE BLD COUNT W/DIF F lymphocytes 52.6 % 16.0-4 7.0 high Not Available [facility] (Lab) [address] [place], [address], 10/12/2022 19:13:39 10/13/19 23 10/12/2022 CBC/C OMPLE TE BLD COUNT W/DIF F monocytes 7.1 % 5.0-12 .0 Not Available [facility] (Lab) [address] [place], [address], 10/12/2022 19:13:39 10/13/19 23 10/12/2022 CBC/C OMPLE TE BLD COUNT W/DIF F eosinophils 3.8 % 1.0-7. 0 Not Available [facility] (Lab) [address] [place], [address], 10/12/2022 19:13:39 10/13/19 23 10/12/2022 CBC/C OMPLE TE BLD COUNT W/DIF F basophils 0.9 % 0.0-2. 0 Not Available [facility] (Lab) [address] [place], [address], 10/12/2022 19:13:39 10/13/19 23 10/12/2022 CBC/C OMPLE TE BLD COUNT W/DIF F immature granulocytes 0.3 % 0.00-0 .50 Not Available [facility] (Lab) [address] [place], [address], 10/12/2022 19:13:39 10/13/1910/12/2022 CBC/C OMPLE TE BLD COUNT W/DIF F neutrophils, absolute count 2.60 x10'3 /uL 1.5-8. 0 Not Available [facility] (Lab) [address] [place], [address], 10/12/2022 19:13:39 10/13/19 23 10/12/2022 CBC/C OMPLE TE BLD COUNT W/DIF F lymphocytes, absolute count 3.88 x10'3 /uL 1.07-3 .43 high Not Available [facility] (Lab) [address] [place], [address], 10/12/2022 19:13:39 10/13/19 23 10/12/2022 CBC/C OMPLE TE BLD COUNT W/DIF F monocytes, absolute count 0.52 x10'3 /uL 0.29-0 .99 Not Available [facility] (Lab) [address] [place], [address], 10/12/2022 19:13:39 10/13/1910/12/2022 CBC/C OMPLE TE BLD COUNT W/DIF F eosinophils, absolute count 0.28 x10'3 /uL 0.02-0 .53 Not Available [facility] (Lab) [address] [place], [address], 10/12/2022 19:13:39 10/13/19 23 10/12/2022 CBC/C OMPLE TE BLD COUNT W/DIF F basophils, absolute count 0.07 x10'3 /uL 0.01-0 .08 Not Available [facility] (Lab) [address] [place], [address], 10/12/2022 19:13:39 10/13/19 23 10/12/2022 CBC/C OMPLE TE BLD COUNT W/DIF F immature granulocytes ,absolute 0.02 x10'3 /uL 0.00-0 .05 Not Available [facility] (Lab) [address] [place], [address], 10/12/2022 19:13:39 10/13/19 23 10/12/2022 CBC/C OMPLE TE BLD COUNT W/DIF F nucleated red blood cells 0.0 % -0 Not Available [facility] (Lab) [address] [place], [address], 10/12/2022 19:13:39 10/13/19 23 10/12/2022 CBC/C OMPLE TE BLD COUNT W/DIF F NRBC# 0.00 x10'3 /uL Not Available [facility] (Lab) [address] [place], [address], 10/12/2022 19:13:39 10/13/19 23 10/12/2022 URINA LYSIS COMPL ETE/I RIS W/RFX color YELLOW Not Available [facility] (Lab) [address] [place], [address], 10/12/2022 20:05:35 10/13/19 23 10/12/2022 URINA LYSIS COMPL ETE/I RIS W/RFX appear CLEAR Not Available [facility] (Lab) [address] [place], [address], 10/12/2022 20:05:35 10/13/19 23 10/12/2022 URINA LYSIS COMPL ETE/I RIS W/RFX specific gravity 1.021 1.001- 1.030 Not Available [facility] (Lab) [address] [place], [address], 10/12/2022 20:05:35 10/13/19 23 10/12/2022 URINA LYSIS COMPL ETE/I RIS W/RFX pH 7.0 pH_un its 5.0-9. 0 Not Available [facility] (Lab) [address] [place], [address], 10/12/2022 20:05:35 10/13/19 23 10/12/2022 URINA LYSIS COMPL ETE/I RIS W/RFX leukocytes NEGATI VE eric/u L negati ve- Not Available [facility] (Lab) [address] [place], [address], 10/12/2022 20:05:35 10/13/19 23 10/12/2022 URINA LYSIS COMPL ETE/I RIS W/RFX nitrite NEGATI VE negati ve- Not Available [facility] (Lab) [address] [place], [address], 10/12/2022 20:05:35 10/13/19 23 10/12/2022 URINA LYSIS COMPL ETE/I RIS W/RFX protein NEGATI VE mg/dL negati ve- Not Available [facility] (Lab) [address] [place], [address], 10/12/2022 20:05:35 10/13/19 23 10/12/2022 URINA LYSIS COMPL ETE/I RIS W/RFX glucose NORMAL mg/dL normal - Not Available [facility] (Lab) [address] [place], [address], 10/12/2022 20:05:35 10/13/19 23 10/12/2022 URINA LYSIS COMPL ETE/I RIS W/RFX ketones NEGATI VE mg/dL negati ve- Not Available [facility] (Lab) [address] [place], [address], 10/12/2022 20:05:35 10/13/19 23 10/12/2022 URINA LYSIS COMPL ETE/I RIS W/RFX urobilinogen NORMAL mg/dL normal - Not Available [facility] (Lab) [address] [place], [address], 10/12/2022 20:05:35 10/13/19 23 10/12/2022 URINA LYSIS COMPL ETE/I RIS W/RFX bilirubin NEGATI VE mg/dL negati ve- Not Available [facility] (Lab) [address] [place], [address], 10/12/2022 20:05:35 10/13/19 23 10/12/2022 URINA LYSIS COMPL ETE/I RIS W/RFX blood NEGATI VE mg/dL negati ve- Not Available [facility] (Lab) [address] [place], [address], 10/12/2022 20:05:35 10/13/19 23 10/12/2022 URINA LYSIS COMPL ETE/I RIS W/RFX white blood cells 0-8 /i??h pfi?? 0-8 Not Available [facility] (Lab) [address] [place], [address], 10/12/2022 20:05:35 10/13/19 23 10/12/2022 URINA LYSIS COMPL ETE/I RIS W/RFX red blood cells 0-4 /i??h pfi?? 0-4 Not Available [facility] (Lab) [address] [place], [address], 10/12/2022 20:05:35 10/13/19 23 10/12/2022 URINA LYSIS COMPL ETE/I RIS W/RFX bacteria OCCASI ONAL abnormal Not Available [facility] (Lab) [address] [place], [address], 10/12/2022 20:05:35 10/13/19 23 10/12/2022 URINA LYSIS COMPL ETE/I RIS W/RFX mucous OCCASI ONAL /i??l pfi?? abnormal Not Available [facility] (Lab) [address] [place], [address], 10/12/2022 20:05:35 10/13/19 23 10/12/2022 URINA LYSIS COMPL ETE/I RIS W/RFX squamous epithelial OCCASI ONAL /i??l pfi?? abnormal Not Available [facility] (Lab) [address] [place], [address], 10/12/2022 20:05:35 10/13/19 23 10/12/2022 URINA LYSIS COMPL ETE/I RIS W/RFX budding yeast OCCASI ONAL /i??h pfi?? abnormal Not Available [facility] (Lab) [address] [place], [address], 10/12/2022 20:05:35 10/13/19 23 10/12/2022 LIPID PANEL cholesterol 277 mg/dL 140-19 9 high NIH RAVI NSUS RECOM MENDA TION FOR JESUS STERO L: ADULT CHILD LOW RISK: <200 <170 BORDE RLINE : <200- 239 ----- HIGH RISK: >240 >200 Not Available [facility] (Lab) [address] [place], [address], 10/12/2022 21:13:33 10/13/19 23 10/12/2022 LIPID PANEL triglyceride s 202 mg/dL 0-150 high NIH RAVI NSUS REPOR T RECOM MENDA TION FOR TRIGL YCERI SCOTT: ADULT CHILD LOW RISK: <150 ----- B[place]ER LINE: 150-1 99 ----- HIGH RISK: >200 ----- Not Available [facility] (Lab) [address] [place], [address], 10/12/2022 21:13:33 10/13/19 23 10/12/2022 LIPID PANEL HDL cholesterol 56 mg/dL 40- Not Available [facility] (Lab) [address] [place], [address], 10/12/2022 21:13:33 10/13/19 23 10/12/2022 LIPID PANEL LDL cholesterol, calculated 181 mg/dL 0-130 high NIH RAVI NSUS REPOR T RECOM MENDA TIONS FOR LDL: ADULT CHILD LOW RISK <130 <110 (OPTI MAL LDL) <100 ----- KARSTEN RLINE : 130-1 59 ----- HIGH RISK: >160 >130 A TRIGL YCERI DE RESUL T >400 INVAL IDATE S THE CALCU LATIO N FOR LDL FRACT IONAT ION - THE LDL RESUL T WILL NOT BE REPOR JOY. Not Available [facility] (Lab) [address] [place], [address], 10/12/2022 21:13:33 10/13/19 23 10/12/2022 HEPAT IC/LI FELIX PANEL alkaline phosphatase 62 U/L 38-126 Not Available [facility] (Lab) [address] [place], [address], 10/12/2022 21:13:36 10/13/19 23 10/12/2022 HEPAT IC/LI FELIX PANEL alanine aminotransfe rase 27 U/L 0-50 Not Available [facility] (Lab) [address] [place], [address], 10/12/2022 21:13:36 10/13/19 23 10/12/2022 HEPAT IC/LI FELIX PANEL aspartate aminotransfe rase 25 U/L 15-46 Not Available [facility] (Lab) [address] [place], [address], 10/12/2022 21:13:36 10/13/19 23 10/12/2022 HEPAT IC/LI FELIX PANEL bilirubin, total 0.70 mg/dL 0.20-1 .30 Not Available [facility] (Lab) [address] [place], [address], 10/12/2022 21:13:36 10/13/19 23 10/12/2022 HEPAT IC/LI FELIX PANEL bilirubin, conjugated (direct) 0.00 mg/dL 0.00-0 .30 Not Available [facility] (Lab) [address] [place], [address], 10/12/2022 21:13:36 10/13/19 23 10/12/2022 HEPAT IC/LI FELIX PANEL biliurubin,u ncong. (indirect) 0.60 mg/dL 0.00-1 .1 Not Available [facility] (Lab) [address] [place], [address], 10/12/2022 21:13:36 10/13/19 23 10/12/2022 HEPAT IC/LI FELIX PANEL total protein 7.1 g/dL 6.3-8. 2 Not Available [facility] (Lab) [address] [place], [address], 10/12/2022 21:13:36 10/13/19 23 10/12/2022 HEPAT IC/LI FELIX PANEL albumin 4.2 g/dL 3.0-4. 4 Not Available [facility] (Lab) [address] [place], [address], 10/12/2022 21:13:36 10/13/19 23 10/12/2022 HEPAT IC/LI FELIX PANEL globulin 2.9 g/dL 2.6-4. 2 Not Available [facility] (Lab) [address] [place], [address], 10/12/2022 21:13:36 10/13/19 23 10/12/2022 HEPAT IC/LI FELIX PANEL A/G ratio 1.4 ratio 1.0-2. 0 Not Available [facility] (Lab) [address] [place], [address], 10/12/2022 21:13:36 10/13/19 23 10/12/2022 BASIC METAB OLIC PANEL sodium 137 mmol/ L 137-14 5 Not Available [facility] (Lab) [address] [place], [address], 10/12/2022 21:13:38 10/13/19 23 10/12/2022 BASIC METAB OLIC PANEL potassium 4.3 mmol/ L 3.5-5. 1 Not Available [facility] (Lab) [address] [place], [address], 10/12/2022 21:13:38 10/13/19 23 10/12/2022 BASIC METAB OLIC PANEL chloride 100 mmol/ L 98-107 Not Available [facility] (Lab) [address] [place], [address], 10/12/2022 21:13:38 10/13/19 23 10/12/2022 BASIC METAB OLIC PANEL carbon dioxide 29 mmol/ L 22-30 Not Available [facility] (Lab) [address] [place], [address], 10/12/2022 21:13:38 10/13/19 23 10/12/2022 BASIC METAB OLIC PANEL anion gap 12.3 mmol/ L 14-22 low Not Available [facility] (Lab) [address] [place], [address], 10/12/2022 21:13:38 10/13/19 23 10/12/2022 BASIC METAB OLIC PANEL glucose 100 mg/dL 70-99 high Not Available [facility] (Lab) [address] [place], [address], 10/12/2022 21:13:38 10/13/19 23 10/12/2022 BASIC METAB OLIC PANEL BUN 13 mg/dL 8-19 Not Available [facility] (Lab) [address] [place], [address], 10/12/2022 21:13:38 10/13/19 23 10/12/2022 BASIC METAB OLIC PANEL creatinine 0.77 mg/dL 0.66-1 .25 Not Available [facility] (Lab) [address] [place], [address], 10/12/2022 21:13:38 10/13/19 23 10/12/2022 BASIC METAB OLIC PANEL GFR >60 Refer ence Range : [place] ge GFR Healt hy Adult : >60 mL/mi n/1.7 3 m2 Chron ic Kidne y Disea se: 15-60 mL/mi n/1.7 3 m2 Kidne y Failu re: <15/m L/min /1.73 m2 www.n iddk. nih.g ov The MDRD study equat ion has not been valid ated in child rio <18 years of age; pregn ant women ; the elder ly >85 years of age; or in some racia l or ethni c subgr oups, such as Eduardo nics. Outsi de the valid ated devora eters , estim ated GFR is less accur ate, requi ring clini dima judgm ent on a case- by-ca se basis . Clini dima inter preta tion for other races and ages must be made by the clini shelbi. The MDRD study equat ion has not been valid ated for the evalu ation of serum creat inine relat ed to nutri makeda l statu s or medic ation usage . For perso ns <18 years of age, a pedia tric GFR calcu lator is avail able on the F websi te: https ://nolberto macdonald.claire hopkins.o rg/pr ofess ional s/kdo qi/gf r_cal culat or Not Available [facility] (Lab) [address] [place], [address], 10/12/2022 21:13:38 10/13/19 23 10/12/2022 BASIC METAB OLIC PANEL calcium 8.8 mg/dL 8.4-10 .2 Not Available [facility] (Lab) [address] [place], [address], 10/12/2022 21:13:38 10/13/19 23 10/12/2022 MAGNE SIUM magnesium 2.2 mg/dL 1.6-2. 3 Not Available [facility] (Lab) [address] [place], [address], 10/12/2022 21:13:48 10/13/19 23 10/12/2022 PSA SCREE N PSA medicare screen 0.72 NG/mL 0.00-4 .00 Not Available [facility] (Lab) [address] [place], [address], 10/12/2022 21:45:02 10/13/19 23 10/12/2022 PSA, TOTAL PSA, total 0.72 NG/mL 0.00-4 .00 Not Available [facility] (Lab) [address] [place], [address], 10/12/2022 22:53:57 03/10/19 25 03/10/2024 XR, chest , 2 view No observ ation record ed. [address], [address], 03/11/2024 14:40:48 03/11/19 25 03/10/2024 XR, lumbo sacra l spine , 2 or 3 view No observ ation record ed. [address], [address], 03/11/2024 14:40:49 Result Notes None recorded. Problems Name Problem SNOMED Code Status Onset Date Resolution Date Notes Provider Name and Address Organization Details Recorded Time Decreased hearing 167399465 Active 2017 Not Available [facility] 4 09:23:48 Nocturia 567255923 Active 2017 Not Available [facility] 4 09:23:48 Herpes labialis 0543070 Active 2021 Not Available [facility] 4 09:23:48 Acquired trigger finger 7705298 Active Not Available [facility] 4 09:23:48 Acute sinusitis [id number] Completed Karlene Palacio NP [address] [facility], [facility] [address], [place], [address] , [facility] 3 08:12:28 On examinati on - herpes labialis- cold sore Active 2018 Not Available [facility] 4 09:23:48 Insomnia 251605839 Active Not Available [facility] 4 09:23:48 Asthma 128510933 Active Not Available [facility] 4 09:23:48 Localized , primary osteoarth ritis of the hand 687232038 Active Not Available [facility] 4 09:23:48 Gastroeso phageal reflux disease 418228448 Active Not Available [facility] 4 09:23:48 Fluid level behind tympanic membrane Completed Not Available [facility] 3 07:31:06 Family history of Cardiovas cular disease 937528481 Active 2017 Not Available [facility] 4 09:23:48 Pain of left hand 84045832457 9103 Active 2021 Not Available [facility] 4 09:23:48 Sinusitis 10812565 Completed Not Available [facility] 3 07:31:06 Seasonal allergy 898882722 Active 2017 Not Available [facility] 4 09:23:48 Upper respirato ry infection 50006113 Completed Not Available [facility] 3 07:31:07 Hyperlipi demia 88854875 Active 2017 doesn' t want to be on statin - side effect s. Not Available [facility] 4 09:23:49 Allergic rhinitis 59896545 Active 2020 Not Available [facility] 4 09:23:49 Rhinitis 88575778 Active Not Available [facility] 4 09:23:49 Posterior rhinorrhe a 40193870 Active Not Available [facility] 4 09:23:49 Acute sinusitis 85206774 Active 2022 Not Available [facility] 4 09:23:48 Difficult y passing urine 099793112 Active 2022 Not Available [facility] 4 09:23:48 Cramp in lower limb 211480294 Active 2022 Not Available [facility] 4 09:23:49 Acute bacterial sinusitis 46636247 Active 2023 JESSA Vaughn [address], [place], [address] , [employer] 4 12:42:45 Allergic asthma 557638171 Active 2023 JESSA Vaughn [address], [place], [address] , [employer] [facility] 4 10:32:53 Spasm 91242563 Active 2023 JESSA Vaughn [address], [address], [place], [address] , [employer] [facility] 4 10:34:54 Acute otitis media 4116862 Active 2023 JESSA Vaughn [address], [address], [place], [address] , [facility] [facility] 4 10:45:25 Skin lesion 54246572 Active 2023 JESSA Vaughn [address], [address], [place], [address] , [employer] [facility] 4 16:18:54 Low back pain 838391603 Active [address], [place], [address] , [employer] [facility] [employer] [facility] 5 15:40:12 Expirator y wheezing 6337262 Active 2024 JESSA Vaughn [address] [facility], [address], [place], [address] , [employer] [facility] [employer] [facility] 5 15:42:53 Degenerat ion of lumbar intervert ebral disc 06506655 Active 2024 JESSA Vaughn [address], [place], [address] , [facility] 5 09:24:23 Problem Notes None recorded. Procedures Surgical History Date Name Laterality Status Provider Name and Address Organization Details Recorded Time 10/15/19 24 Medicare Wellness CPT Code, Initial completed JESSA Vaughn [address] [facility], [place], [address], [facility] 10/15/2023 10:53:44 02/18/19 13 Cataract surg w/iol 1 stage completed Karlene Haider RN [facility] [employer] [facility] 10/15/2023 10:15:12 Sinus Surgery completed Not Available [facility] 04/18/2022 07:27:20 Tonsillectomy completed Not Available [facility] 04/18/2022 07:27:20 Imaging Results Imaging Date Name Status LastModified by Organiz ation Details LastModified Time 03/10/2024 XR, chest, 2 view completed [address] [place] [address], [address], 03/11/2024 14:40:48 03/10/2024 XR, lumbosacral spine, 2 or [address] [place] [address], [address], 03/11/2024 14:40:49 Procedure Notes None recorded. Medical Equipment None Reported. Allergies Allergen ID Allergen Name Allergen Category Reaction Reaction Severity Criticality Documentation Date Start Date Code Code System Note Provider Name and Address Organization Details Recorded Time Product containin g 3-hydroxy -3-methyl glutaryl- coenzyme A reductase inhibitor (product) medicatio n Not available Not available Not available 04/18/2022 59238 009 SNOMED muscl e aches , pain in throa t. Not Available [facility] 3 07:36:00 00722 cat dander environme nt anaphylax is moderate Not available 04/18/2022 74232 UNK breat ben cease s. Passe d out. Not Available [facility] 3 07:36:00 13085 Augmentin medicatio n nausea Not available Not available 04/18/2022 77017 2 RxNorm Not Available [facility] 3 07:36:00 Medications Name Sig Start [...] DAY AND TAKE 1 TABLET ON THE IN-WEE N DAYS 2023 active Not Available Not [...] Available Not Available Not Available amoxicillin 875 mg-syediu m clavulanate 125 mg tablet Take 1 [...] height Body mass index (BMI) Body weight Body temperature Heart rate Oxygen saturation Oxygen saturation in Arterial blood by Pulse oximetry Systolic blood pressure Diastolic blood pressure Provider Name and Address Organization Details Last Updated DateTime 3 177.8 cm 27.5 kg/m2 18785.8 9 g 97.5 [degF] 76 /min 97 % 97 % 113 mm[Hg] 76 mm[Hg] Nory Bledsoe MA [facility] [employer] [facility] 3 10:17:43 Date Recorded Body height Body mass index (BMI) Body weight Body temperature Heart rate Oxygen saturation Oxygen saturation in Arterial blood by Pulse oximetry Respiratory rate Systolic blood pressure Diastolic blood pressure Provider Name and Address Organization Details Last Updated DateTime 4 177.8 cm 28 kg/m2 98944.8 6 g 98.2 [degF] 72 /min 98 % 98 % 20 /min 140 mm[Hg] 90 mm[Hg] Karlene Haider RN [facility] [employer] [facility] 4 10:18:48 Date Recorded Body height Body mass index (BMI) Body weight Body temperature Heart rate Oxygen saturation Oxygen saturation in Arterial blood by Pulse oximetry Respiratory rate Systolic blood pressure Diastolic blood pressure Provider Name and Address Organization Details Last Updated DateTime 4 177.8 cm 27.5 kg/m2 59090.5 9 g 97.9 [degF] 64 /min 95 % 95 % 20 /min 106 mm[Hg] 62 mm[Hg] Karlene Haider RN [facility] [employer] [facility] 4 10:11:32 Date Recorded Body height Body mass index (BMI) Body weight Respiratory rate Body temperature Heart rate Oxygen saturation Oxygen saturation in Arterial blood by Pulse oximetry Systolic blood pressure Diastolic blood pressure Provider Name and Address Organization Details Last Updated DateTime 4 177.8 cm 27.3 kg/m2 78124.5 5 g 24 /min 97.7 [degF] 87 /min 97 % 97 % 118 mm[Hg] 78 mm[Hg] Karlene Haider RN [facility] [employer] [facility] 4 16:08:18 Date Recorded Body height Body mass index (BMI) Body weight Heart rate Body temperature Respiratory rate Oxygen saturation Oxygen saturation in Arterial blood by Pulse oximetry Systolic blood pressure Diastolic blood pressure Provider Name and Address Organization Details Last Updated DateTime 5 177.8 cm 27.6 kg/m2 09368.4 4 g 63 /min 97.2 [degF] 24 /min 99 % 99 % 170 mm[Hg] 110 mm[Hg] Karlene Haider RN [facility] [email or web address] 5 15:30:18 Social History Question Answer Notes LastModified by Organization Details LastModified Time Tobacco Smoking Status Never Smoker Not Available [facility] 04/18/2022 07:27:03 Do You Have An Advance Directive? No MIGRATION.0301 [id number] Information not available 04/18/2022 What Is Your Level Of Alcohol Consumption? Moderate MIGRATION.0301 995723 Information not available 04/18/2022 Are You Blind Or Do You Have Difficulty Seeing? No MIGRATION.0301 846710 Information not available 04/18/2022 Is Blood Transfusion Acceptable In An Emergency? Yes Information not available 10/15/2023 What Is Your Level Of Caffeine Consumption? Moderate MIGRATION.0301 280669 Information not available 04/18/2022 How Much Tobacco Do You Chew? None MIGRATION.0301 437559 Information not available 04/18/2022 What Is Your Code Status? Full Code Information not available 10/15/2023 In The 14 Days Before Symptom Onset, Have You Had Close Contact With A Laboratory-conf irmed COVID-19 While That Case Was Ill? No MIGRATION.0301 609877 Information not available 04/18/2022 In The 14 Days Before Symptom Onset, Have You Had Close Contact With A Person Who Is Under Investigation For COVID-19 While That Person Was Ill? No MIGRATION.0301 784658 Information not available 04/18/2022 Are You Currently Employed? No Information not available 10/15/2023 Are You Deaf Or Do You Have Serious Difficulty Hearing? Yes Hears 3 Different Pitches At A Time. MIGRATION.0301 996360 Information not available 04/18/2022 What Type Of Diet Are You Following? REGULAR MIGRATION.0301 316271 Information not available 04/18/2022 Which Illicit Or Recreational Drugs Have You Used? Marijuana MIGRATION.0301 517770 Information not available 04/18/2022 Do You Or Have You Ever Used E-cigarettes Or Vape? Never Used Electronic Cigarettes MIGRATION.0301 014363 Information not available 04/18/2022 What Is Your Occupation? Retired MIGRATION.0301 552873 Information not available 04/18/2022 Have There Been Any Changes To Your Family Or Social Situation? No Information not available 06/14/2022 Do You Use Insect Repellent Routinely? Yes MIGRATION.0301 731338 Information not available 04/18/2022 Where Do You [...] Do You Have A Medical Power Of Frame Tender? No MIGRATION.0301 552447 Information not available 04/18/2022 What Was The Date Of Your Most Recent Tobacco Screening? 11/14/2021 MIGRATION.0301 686811 Information not available 04/18/2022 What Is Your Relationship Status? MIGRATION.0301 048145 Information not available 04/18/2022 Do You Use Your Seat Belt Or Car Seat Routinely? Yes MIGRATION.0301 817827 Information not available 04/18/2022 Do You Have Smoke And Carbon Monoxide Detectors In Your Home? No Information not available 06/14/2022 Do You Or Have You Ever Used Smokeless Tobacco? Never Used Smokeless Tobacco MIGRATION.0301 251120 Information not available 04/18/2022 Are There Any Smokers In Your House? No Information not available 06/14/2022 Do You Participate In Social Media? Yes MIGRATION.0301 012703 Information not available 04/18/2022 Do You Feel Stressed (tense, Restless, Nervous, Or Anxious, Or Unable To Sleep At Night)? DS09158-5 Information not available 10/15/2023 Do You Use Any Illicit Or Recreational Drugs? Yes Information not available 06/14/2022 Do You Use Sunscreen Routinely? Yes MIGRATION.0301 554095 Information not available 04/18/2022 Have You Recently Traveled Abroad? No MIGRATION.0301 887572 Information not available 04/18/2022 Sex: Male Functional Status Question Answer Note LastModified by [employer] Details LastModified Time Do you have difficulty walking or climbing stairs? No MIGRATION.47529 03772 Information not available 04/18/2022 Do you have transportation difficulties? No Information not available 06/14/2022 Are you able to walk? YESWOREST Occasionally unsteady MIGRATION.53686 86647 Information not available 04/18/2022 Do you have difficulty doing errands alone? No MIGRATION.08861 78865 Information not available 04/18/2022 Are you able to care for yourself? Yes MIGRATION.57160 81092 Information not available 04/18/2022 Do you have difficulty dressing or bathing? No MIGRATION.74323 89716 Information not available 04/18/2022 What is your exercise level? Heavy MIGRATION.42256 79467 Information not available 04/18/2022 Mental Status Question Answer Note LastModified by [employer] Details LastModified Time Do you have difficulty concentrating, remembering or making decisions? No MIGRATION.200216034 6 Information not available 04/18/2022 Family History Relationship Description Onset Age of this Age Resolved Age Notes LastModified by Organization Details LastModified Time Father No current problems or disability MIGRATION.411 [id number] Not available 04/18/2022 07:27:22 Mother No current problems or disability MIGRATION.150 [id number] Not available 04/18/2022 07:27:22 Medical History Condition Response BLINDNESS N RHEUMATIC FEVER N KIDNEY STONES N BLADDER PROBLEMS N MRSA N OTHER # 1 N POLIO N LUNG DISEASE/DISORDER Y HISTORY OF DRUG ABUSE N COPD N RADIATION / CHEMOTHERAPY N Other # 2 N BLOOD DISEASES N SURGERY N EAR OR HEARING PROBLEMS N MUMPS N SHINGLES N BOWEL PROBLEMS N FEMALE PROBLEMS / INFECTIONS N DEPRESSION (INCLUDING POST ) N STROKE/TIA N THYROID DISEASE N ULCERS N BENIGN PROSTATIC HYPERPLASIA N MEASLES N CERVICALGIA N TB SKIN TEST N HYPOTENSION N MYOCARDIAL INFARCTION N OBESITY N PARAPELGIA N GERD/NAUSEA N ANEURYSM N URINARY/BLADDER/KIDNEY PROBLEMS [...] GLAUCOMA N FOOT PROBLEM N DIVERTICULITIS N CHICKENPOX N SLEEP APNEA N ALLERGIES/HAYFEVER Y INFECTIOUS DISEASE N HEART ARRHYTHMIA N PROSTATE N INSOMNIA N HIGH CHOLESTEROL / HYPERLIPIDEMIA N HYPERTHYROIDISM N EYE PROBLEMS N EATING DISORDER N EDEMA N CHRONIC PAIN SYNDROME N CONSTIPATION N CAROTID BLOCKAGE N BACK / NECK PROBLEMS Y HAVE YOU BEEN HOSPITALIZED OR SEEN IN [facility] IN THE PAST YEAR ? N ATHEROSCLEROSIS [...] DISORDER N ALZHEIMER'S DISEASE N PAIN N HERPES N DEMENTIA N HEADACHES/MIGRAINES N SEIZURES/EPILEPSY N VASCULAR DISEASE N PACEMAKER N DIZZINESS N HEART DISEASE/HEART PROBLEMS N KIDNEY DISEASE N DEVELOPMENTAL OR BEHAVIORAL DISORDERS N MULTIPLE SCLEROSIS N SCARLET FEVER N MENTAL DISORDER/ILLNESS N CARDIAC ARRHYTHMIA N CANCER: SPECIFY N PNEUMONIA N ATRIAL FIBRILLATION N Gall Stones N PULMONARY EMBOLISM N AUTOIMMUNE DISEASE N Immunizations Vaccine Type Date Status Note Provider Nam e and Address Organization Details Recorded Time SARS-COV-2 (COVID-19) vaccine, UNSPECIFIED 3 completed Karlene Haider RN [facility], [facility] 08/20/2023 10:11:55 Respiratory syncytial virus (RSV), unspecified 4 completed Karlene Palacio NP [address], [address], [email or web address] 02/27/2023 08:05:18 Influenza, split virus, quadrivalent, preservative 1 completed Not Available [facility] 04/18/2022 07:35:53 SARS-COV-2 (COVID-19) vaccine, UNSPECIFIED 1 completed Not Available [facility] 04/18/2022 07:35:53 SARS-COV-2 (COVID-19) vaccine, UNSPECIFIED 1 completed Not Available [facility] 04/18/2022 07:35:53 Tdap 8 completed Not Available [facility] 04/18/2022 07:35:53 Influenza, split virus, trivalent, preservative 3 completed Not Available [facility] 04/18/2022 07:35:54 pneumococcal polysaccharide PPV23 1 completed Not Available [facility] 04/18/2022 07:35:54 Td (adult), 2 Lf tetanus toxoid, preservative free, adsorbed 8 completed Not Available [facility] 04/18/2022 07:35:54 Pneumococcal conjugate PCV 13 8 completed Not Available [facility] 04/18/2022 07:35:54 Influenza, split virus, quadrivalent, preservative 6 completed Not Available [facility] 04/18/2022 07:35:54 Influenza, split virus, trivalent, PF 4 completed Not Available [facility] 04/18/2022 07:35:54 Past Encounters Encounter ID Performer Location Encounter Start Date Encounter Closed Date Diagnosis/Indication Diagnosis SNOMED-CT Code Diagnosis ICD10 Code Diagnosis Note [id number] [address] [address] 05/03/2020 00:00:00 05/03/2020 12:40:[id number] [address] 05/24/2020 00:00:00 05/24/2020 15:36:[id number] [address] 08/23/2020 00:00:00 08/23/2020 18:24:49 [id number] [facility] [address] [place] [address] 08/24/2020 00:00:00 08/24/2020 14:11:15 [id number] [facility] [address] [place] [address] 09/08/2020 00:00:00 09/08/2020 16:26:30 [id number] [facility] [address] [place] [address] 12/13/2020 00:00:00 12/13/2020 18:12:38 [id number] [facility] [address] [place] [address] 07/13/2021 00:00:00 07/13/2021 11:56:35 [id number] [facility] [address] [place] [address] 08/29/2021 00:00:00 08/29/2021 11:47:15 [id number] [facility] [address] [place] [address] 10/25/2021 00:00:00 10/25/2021 12:57:34 [id number] [facility] [address] [place] [address] 11/14/2021 00:00:00 11/16/2021 10:47:03 [id number] Karlene Palacio NP [facility] [address] [place] [address] 06/14/2022 07:56:02 06/14/2022 08:32:09 Acute sinusitis 50542628 J01.90 Prednisone 10 mg and clindamyci n HCL 300 mg.Nasal saline prn.Increa se immune support with shelia moura, [id number] Karlene Palacio NP [facility] [address] [place] [address] 10/12/2022 09:59:05 10/12/2022 10:59:12 Difficulty passing urine 641861260 R39.198 Likely bph. Referred to Urologist. PSA 0.58 08/29/21Avo id prabha nt. 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 Acute sinusitis 08464565 J01.90 Prednisone 10 mg and clindamyci n HCL 300 mg.Nasal saline prn.Increa se immune support with shelia moura, [id number] Miroslava Mcintosh [address] [address] 08/20/2023 09:43:53 08/20/2023 10:52:44 Acute sinusitis 42904940 J01.90 Continue nasal flushingAd vised to try antihistam ineAdvised to try flonase, pt declined Allergic asthma 69747359 6 J45.909 Spasm 91603209 R25.2 Acute otitis media 88947 03 H66.93 Managed with clindamyci n for sinusitis [id number] JESSA Vaughn [address] [address] 10/15/2023 09:54:10 10/15/2023 11:03:20 Adult health examination 282752930 Z00.00 Screening for disorder 352823042 Z13.9 Cramp in lower limb 4499 31097 R25.2 [id number] JESSA Vaughn [address] [address] 11/20/2023 15:56:18 11/20/2023 16:23:16 Acute bacterial sinusitis 73052289 J01.90 Skin lesion 76732654 L98 .9 [id number] JESSA Vaughn [facility] [address] [address] 03/10/2024 15:16:57 03/10/2024 15:52:59 Low back pain 218167785 M54.50 Possible kidney stone?Pt request pain management referral Expiratory wheezing 9763 007 R06.2 Has been wheezing for a few months.Bell s take prednisone every other day.Does not see pulm for asthmaRefu ses [facility] Asthma 402196066 J45.90 9 Will increase daily prednisone dose while symptoms are severe Acute bact erial sinusitis 33099726 J01.90 Large spectrum abx resistant, frequent abx use. Has had multiple sinus surgeries with no relief Health Concerns Section Related Observation LastModified by Organization Detai ls LastModified Time None Recorded Concern Status LastModified by Organization Details LastModified Time None Recorded Advance Directives Directive N: Payers Encounter Date Sequence Insurance Name Policy Number Policy Delatorre Covered Member ID Delatorre Member ID Guarantor Name 10/12/2022 1 [place] Swapnil Mock [id number] 2 Swapnil Mock 10/12/2022 2 [place] 33D Swapnil Mock [id number] Swapnil Mock 08/20/2023 1 [place] Swap[place] Mock [id number] Swapnil Mock 08/20/2023 2 [place] 33D Swapnil Mock [id number] Swapnil Mock 10/15/2023 1 [place] Swapnil Mock [id number] 2 Swapnil Mock 10/15/2023 2 [place] 33D Swapnil Mock [id number] Swapnil Mock 11/20/2023 1 [place] Swapnil Mock [id number] 2 Swapnil Mock 11/20/2023 2 [place] 33D Swapnil Mock [id number] Swapnil Mock 03/10/2024 1 [place] Swapnil Mock [id number] 2 Swapnil Mock 03/10/2024 2 [facility]: 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 Urinary issues- trouble getting urine to start. +Straining. Rarely uses alisa-D Pushes on scrotum to get urine to flow. States symptoms. No pain with urination. Urine clear/yellow. No foam. no fever or chills. +Sinus congestion and large thick yellow/green drainage. Pressure in face and head. Leg cramps- taking potassium and magnesium which helps, but still having issues. Has to walk around all night some nights to get pain gone. Generally when laying prone in bed. Trys to stay hydrated. 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 1-[address] to and from a performance. Karlene Palacio NP [address], [place], [address], [facility] 10/12/2022 10:54:30 08/20/2023 text/html Swapnil Mock is a 73 year old male patient here to follow up on acute sinusitis. He states that he is prone to sinus infections. He recently completed azithromycin pack. He feels that this helped a bit but he is still having some yellow drainage and post nasal drip. The patient is requesting a longer course of antibiotics. He states that he has seen multiple ENT docs and has had 6 sinus surgeries.He takes alisa D daily and prednisone from ENT. He has concerns with muscle cramps that wake him at night. He is taking Magnesium and ashwagandha which he feels is helping. He states that he drinking 1/2 gallon of water daily. He feels this is helping the cramps. Miroslava Mcintosh, JESSA [address], [place], [address], [facility] 08/20/2023 10:45:55 10/15/2023 text/html Swapnil Mock is a 73 year old male patient here today for a MAWV. Screenings complete as indicated. Annual labs done last 09/2022, will repeat today His biggest concerns today are lower leg cramping and tinnitus. He has chronic sinusitis JESSA Vaughn [address], [place], [address], [facility] 10/15/2023 11:01:38 11/20/2023 text/html Swapnil Mock is a 73 year old male patient here today for a sick visit He has recurrent sinus infections. He has had multiple procedures and seen ENT numerous times. Often requires clindamycin. Recently completed Clindamycin.Has currently been sick for 3 weeks, states had a peak, tapered off, and when he finished the abx it returned.Has required Gamaguard infusions in the past Has concerns with a growth under the left eye. States it will scab, bleed, then grow JESSA Vaughn [address], [place], [address], [facility] 11/20/2023 16:22:26 03/10/2024 text/html Swapnil Mock is a 74 [...] to see pain management JESSA Vaughn [address], [place], [address], [facility] 03/10/2024 15:58:25
== END 2024-03-10 15:16 | disposition home or self-care (01) ==
DX: R06.2 Wheezing (principal); M51.369 Other intervertebral disc degeneration, lumbar region without mention of lumbar back pain or lower extremity pain
CPT/HCPCS: 71046; 72100